=== PATIENT | female | born 1960 | race Two or more races ===

== ENCOUNTER 2018-09-17 10:49 | Emergency (ER) | payer SELFPAY ==
[~2018-09-17] VITALS: Ht 167.6 cm; Wt 55.0 kg
[2018-09-17] MEDS ORDERED: HYDROCODONE/ACETAMINOPHEN 5/325MG TABLET PO ONE (12:00)
[2018-09-17 14:03] VITALS: BP 142/78
== END 2018-09-17 14:04 | disposition home or self-care (01) ==
LOC: ER 10:49
DX: S40.022A Contusion of left upper arm, initial encounter (principal); E11.9 Type 2 diabetes mellitus without complications; I10 Essential (primary) hypertension; Y08.89XA Assault by other specified means, initial encounter; Y93.89 Activity, other specified; Y92.89 Other specified places as the place of occurrence of the external cause; Y99.8 Other external cause status
CPT/HCPCS: 73030; 73060; 73080; 99283; A4565